=== PATIENT | female | born 1965 ===

== ENCOUNTER 2021-11-27 10:55 | Inpatient (IN) ==
[2021-11-27] MEDS ORDERED: methylPREDNISolone SOD SUC 125 MG/2 ML VIAL IV STA (11:40)
[2021-11-27] MEDS ORDERED: ALBUTEROL/IPRATROPIUM 3 ML NEB RESP TX STA ×2 (11:40→12:21)
[2021-11-27 11:59] LABS: Basophils % 0.1 % (0.0-0.8); Hematocrit 42.4 VOL% (35.7-47.0); Hemoglobin 14.2 GM/DL (12.0-16.0); Immature Granulocytes % 1.8 %; Immature Granulocytes Absolute 0.15 #; Lymphocytes # 0.9 10*3/uL (1.4-4.0); Lymphocytes % 10.2 % (21.3-54.2); Mean Corpuscular HGB Conc 33.5 GM/DL (32-36); Mean Corpuscular Volume 88.9 FL (87-102); Mean Platelet Volume 9.9 FL (9.6-12.0); Monocytes # 0.4 10*3/uL (0.11-0.8); Monocytes % 4.7 % (1.7-12.7); Neutrophils % 83.2 % (38.7-73.9); Platelet Count 212 T/CUMM (130-400); Red Blood Count 4.77 MC/CUMM (3.8-5.5); Red Cell Distribution Width 14.5 % (9.3-17.3); White Blood Count 8.3 T/CUMM (4-12)
[2021-11-27] MEDS ORDERED: HYDROcod/ACETAMIN 7.5-325 MG/15 ML UDCUP PO STA (12:13)
[2021-11-27 12:25] LABS: Alanine Aminotransferase 23 U/L (13-56); Albumin 3.1 G/DL (3.4-5.0); Alkaline Phosphatase 99 U/L (45-117); Aspartate Amino Transferase 37 U/L (0-37); Bilirubin,Total < 0.39 MG/DL (0.20-1.00); Blood Urea Nitrogen 11 MG/DL (7-18); Calcium 8.3 MG/DL (8.5-10.1); Carbon Dioxide 25 MMOL/L (21-32); Chloride 111 MMOL/L (98-107); Glucose 109 MG/DL (74-106); Osmolality,Calculated 282.1 MOS/KG (273-304); Sodium 142 MMOL/L (136-145); Total Protein 6.5 G/DL (6.4-8.2)
[2021-11-27] MEDS ORDERED: EPINEPHrine 1 MG/ML VIAL SUBCUT STA (12:29)
[2021-11-27] MEDS ORDERED: ALBUTEROL/IPRATROPIUM 3 ML NEB RESP TX PRN (12:57)
[2021-11-27] MEDS ORDERED: GLUCAGON 1 MG VIAL IM PRN (13:00)
[2021-11-27] MEDS ORDERED: DEXTROSE 10% 250 ML BAG IV PRN (13:00)
[2021-11-27] MEDS ORDERED: NICOTINE 21 MG/24 HR PATCH TRANSDERM PRN (13:22)
[2021-11-27 13:40] LABS: Arterial Base Excess iSTAT 0 MMOL/L (-2.5-2.5); Arterial O2 Saturation iSTAT 92 % (95-100); Arterial PCO2 iSTAT 46 MM HG (35-48); Arterial PO2 iSTAT 68 MM HG (80-95); Arterial Total CO2 iSTAT 27 MMO/L (23-27)
[2021-11-27] MEDS: AZITHROMYCIN INJ 500 MG in SODIUM CHLORIDE 0.9% 250 ML IV SCH (14:21)
[2021-11-27] MEDS: HEPARIN 5,000 UNIT/1 ML VIAL SUBCUT SCH ×2 (14:21→22:06)
[2021-11-27] MEDS: methylPREDNISolone SOD SUC 40 MG/1 ML VIAL IV SCH ×2 (17:56→23:28)
[2021-11-27] MEDS ORDERED: BENZONATATE 100 MG CAPSULE PO PRN (18:06)
[2021-11-27] MEDS: guaiFENesin/CODEINE 5 ML LIQUID PO PRN (20:24)
[2021-11-27] MEDS: BUDESONIDE/FORMOTEROL 160-4.5 INHALER 6 GM INH SCH (20:24)
[2021-11-27] MEDS: ALBUTEROL/IPRATROPIUM 3 ML NEB RESP TX SCH (20:30)
[2021-11-28] MEDS: ALBUTEROL/IPRATROPIUM 3 ML NEB RESP TX SCH ×5 (00:28→23:50)
[2021-11-28] MEDS: guaiFENesin/CODEINE 5 ML LIQUID PO PRN (01:46)
[2021-11-28] MEDS: HEPARIN 5,000 UNIT/1 ML VIAL SUBCUT SCH ×3 (05:51→22:46)
[2021-11-28] MEDS: methylPREDNISolone SOD SUC 40 MG/1 ML VIAL IV SCH ×3 (05:55→20:57)
[2021-11-28 06:20] LABS: Basophils % 0.1 % (0.0-0.8); Hematocrit 40.2 VOL% (35.7-47.0); Hemoglobin 13.2 GM/DL (12.0-16.0); Immature Granulocytes % 1.7 %; Immature Granulocytes Absolute 0.14 #; Lymphocytes # 0.9 10*3/uL (1.4-4.0); Lymphocytes % 10.4 % (21.3-54.2); Mean Corpuscular HGB Conc 32.8 GM/DL (32-36); Mean Corpuscular Volume 89.9 FL (87-102); Mean Platelet Volume 10.1 FL (9.6-12.0); Monocytes # 0.4 10*3/uL (0.11-0.8); Monocytes % 4.2 % (1.7-12.7); Neutrophils % 83.6 % (38.7-73.9); Platelet Count 184 T/CUMM (130-400); Red Blood Count 4.47 MC/CUMM (3.8-5.5); Red Cell Distribution Width 14.2 % (9.3-17.3); White Blood Count 8.3 T/CUMM (4-12)
[2021-11-28 06:37] LABS: Calcium 8.2 MG/DL (8.5-10.1); Osmolality,Calculated 289.8 MOS/KG (273-304); Potassium 3.9 MMOL/L (3.5-5.1)
[2021-11-28] MEDS: BUDESONIDE/FORMOTEROL 160-4.5 INHALER 6 GM INH SCH ×2 (10:16→20:57)
[2021-11-28] MEDS: lisinopriL 10 MG TABLET PO SCH (14:30)
[2021-11-28] MEDS: MULTIVITAMIN (CENTRUM) TABLET PO SCH (14:30)
[2021-11-28] MEDS: AZITHROMYCIN INJ 500 MG in SODIUM CHLORIDE 0.9% 250 ML IV SCH (16:16)
[2021-11-29] MEDS: methylPREDNISolone SOD SUC 40 MG/1 ML VIAL IV SCH ×2 (03:25→09:49)
[2021-11-29] MEDS ORDERED: PANTOPRAZOLE 20 MG TABLET PO SCH (06:00)
[2021-11-29] MEDS: HEPARIN 5,000 UNIT/1 ML VIAL SUBCUT SCH (06:24)
[2021-11-29] MEDS: ALBUTEROL/IPRATROPIUM 3 ML NEB RESP TX SCH (07:35)
[2021-11-29 08:01] VITALS: BP 140/51
[2021-11-29] MEDS: lisinopriL 10 MG TABLET PO SCH (09:49)
[2021-11-29] MEDS: MULTIVITAMIN (CENTRUM) TABLET PO SCH (09:49)
[2021-11-29] MEDS: BUDESONIDE/FORMOTEROL 160-4.5 INHALER 6 GM INH SCH (09:50)
== END 2021-11-29 11:09 | disposition home or self-care (01) | DRG 191 ==
LOC: N.ED 10:55 → N.5E 13:00 → SUATTDRO 13:00 → N.5E 16:52
PROVIDERS: ADMIT Internal Medicine; ATTEND Internal Medicine